=== PATIENT | female | born 1995 | race Caucasian/White ===

== ENCOUNTER → 2017-10-26 | Outpatient (REF) | payer BC ==
[~2017-10-26] MED LIST: AMOX-559 PO; AZIT-18 PO; BIOT800T4 PO; DESO1TAB40 PO; FAMO20TA28 PO; HYDR-4309 PO; HYDR1TAB PO; IRON18TA2 PO; ONDA4TAB PO; ONDA4TAB9 PO; ORAL BIRTH CONTROL; PRED20TA6 PO; PREN-127 PO; PROM-110 PO
[2017-10-26 15:07] LABS: PLATELET COUNT, AUTOMATED 198 K/uL (150-450)
== END ==
PROVIDERS: ATTEND Nurse Practitioner Family
DX: R11.10 Vomiting, unspecified (principal)
CPT/HCPCS: 82040; 82247; 82310; 82374; 82435; 82565; 82947; 84075; 84132; 84155; 84295; 84450; 84460; 84520; 85025

== ENCOUNTER 2017-11-20 04:29 | Emergency (ER) | payer BC ==
[2017-11-20] MEDS ORDERED: birth control (04:37)
--- NOTE | 2017-11-20 04:42 | ER Report ---
History and Physical Time Seen By MD: 04:41 Hx. of Stated Complaint: Pt reporting cold like symptoms for four days. Pt states throat, lymph nodes and tonsils are swollen. Pt states she feels like it is difficult to breathe. HPI/ROS CHIEF COMPLAINT: Sore throat HISTORY OF PRESENT ILLNESS: This is a 22 year old female. She has been having sore throat and upper respiratory symptoms for about 4 days now. Throat is the worst symptom. She has some loss of voice this morning as well. Runny nose. Mild cough. Nausea and some upset stomach. No diarrhea. No urinary problems. Allergies: Coded Allergies: Sulfa (Sulfonamide Antibiotics) (Verified Allergy, Intermediate, HIVES, ) amoxicillin (Verified Allergy, Intermediate, HIVES, 10/23/15) clavulanic acid (Verified Allergy, Intermediate, HIVES, 10/23/15) Home Meds Active Scripts Azithromycin (ZITHROMAX) 250 Mg Tablet, 1 TAB PO QDAY for 4 Days, #4 TAB 0 Refills Prov:FELICIANO ALMAZAN MD 11/20/17 Reported Medications [ control] No Conflict Check 11/20/17 Discontinued Reported Medications Desog-Et Estra/Ethin Estra (AZURETTE 28 DAY TABLET) 1 Each Tablet, 1 EACH PO DAILY 07/11/14 Discontinued Scripts Hydrocodone Bit/Acetaminophen (NORCO 5-325 TABLET) 1 Each Tablet, 1 EACH PO Q4H Y for PAIN, #12 Prov:ALFONSO HERNANDEZ DO 10/14/15 Promethazine Hcl (PROMETHAZINE HCL) 25 Mg Tablet, 25 MG PO Q4H Y for NAUSEA/ VOMITING, #15 TAB Prov:ALFONSO HERNANDEZ DO 10/14/15 Amoxicillin/Pot Clav 875-125 Mg Tab (AUGMENTIN 875-125 TABLET) 1 Each Tablet, 1 TAB PO Q12H for infection, #20 TAB TAKE ONE TABLET BY MOUTH EVERY 12 HOURS Prov:ALFONSO HERNANDEZ DO 10/14/15 Hydrocodone Bit/Acetaminophen (NORCO 5-325 TABLET) 1 Each Tablet, 1 EACH PO Q4H Y for PAIN, #12 Prov:ALFONSO HERNANDEZ DO 10/12/15 Azithromycin 250 Mg Tab (AZITHROMYCIN 250 MG TAB) 250 Mg Tablet, 0 PO QDAY, #6 TAB TAKE 2 TABLETS ON DAY 1 AND 1 TABLET ON DAYS 2-5 Prov:ALFONSO HERNANDEZ 10/12/15 Reviewed Nurses Notes: Yes Hx Smoking: No Smoking Status: Never Smoker Exposure to Second Hand Smoke?: No Hx Substance Use Disorder: No Hx Alcohol Use: No Constitutional Vital Sign - Last 24 Hours 11/20/17 11/20/17 11/20/17 11/20/17 04:35 04:37 04:39 05:50 Temp 98.1 Pulse 102 99 89 Resp 20 B/P (MAP) 106/80 (89) 106/80 105/66 (79) Pulse Ox 99 98 97 O2 Delivery Room Air Physical Exam General Appearance: Alert, no distress ENT: Normal oral mucosa. Moist mucous membranes. Posterior oropharynx red, erythematous, hypertrophy and exudates. Tympanic membranes are normal. Neck: Neck is supple and she has tender submandibular lymphadenopathy. Respiratory: Chest is non tender, lungs are clear to auscultation. Cardiac: regular rate and rhythm Gastrointestinal: Abdomen is soft and non tender, no masses, bowel sounds normal. Skin: No rashes or lesions. DIFFERENTIAL DIAGNOSIS: After history and physical exam differential diagnosis was considered for sore throat and upper respiratory symptoms. We'll check strep and influenza. If these are negative for check mono. Medical Decision Making Data Points Laboratory Hematology Test 11/20/17 04:55 Influenza Virus Type A (PCR) Negative (NEGATIVE) Influenza Virus Type B (PCR) Negative (NEGATIVE) Group A Streptococcus Screen Positive (NEGATIVE) Chemistry Test 11/20/17 04:55 Influenza Virus Type A (PCR) Negative (NEGATIVE) Influenza Virus Type B (PCR) Negative (NEGATIVE) Group A Streptococcus Screen Positive (NEGATIVE) ED Course/Re-evaluation ED Course Positive strep. Negative influenza. Penicillin allergy, we'll give a azithromycin. Off work for the next few days. Rest and increase fluid intake. Decision to Disposition Date: Nov 20, 2017 Decision to Disposition Time: 05:35 Depart Departure Latest Vital Signs Vital Signs Date Time Temp Pulse Resp B/P (MAP) Pulse Ox O2 Delivery O2 Flow Rate FiO2 11/20/17 05:50 89 105/66 (79) 97 11/20/17 04:37 98.1 20 Room Air Impression: Primary Impression: Strep pharyngitis Condition: Improved Disposition: HOME OR SELF-CARE Referrals: MAURICIO CARVAJAL DO (PCP) New Scripts Azithromycin (ZITHROMAX) 250 Mg Tablet 1 TAB PO QDAY for 4 Days, #4 TAB 0 Refills Prov: FELICIANO ALMAZAN MD 11/20/17 Patient Instructions: Strep Throat (ED) Additional Instructions: Take Ibuprofen or Tylenol as needed for pain. Take the antibiotic Azithromycin 250mg tablet once a day for 4 days starting tomorrow morning. FELICIANO ALMAZAN MD Nov 20, 2017 04:42
[2017-11-20] MEDS ORDERED: AZITHROMYCIN 250 MG TAB PO ONE (05:35)
[2017-11-20] MEDS ORDERED: AZIT-1 PO (05:36)
[2017-11-20 05:50] VITALS: BP 105/66
== END 2017-11-20 05:57 | disposition home or self-care (01) ==
LOC: ER 05:01
DX: J02.0 Streptococcal pharyngitis (principal)
CPT/HCPCS: 87081; 87502; 87880; 99283

== ENCOUNTER 2018-03-26 04:02 | Emergency (ER) | payer BC ==
[~2018-03-26 04:02] MED LIST changes: +AZIT-1 PO; +birth control
[2018-03-26] MEDS ORDERED: ONDANSETRON 4 MG ODT TABDP SL ONE (04:10)
--- NOTE | 2018-03-26 04:23 | ER Report ---
History and Physical Time Seen By MD: 04:02 Hx. of Stated Complaint: VENKATA STATES SHE HIT HER HEAD ON CABINET AROUND 1800, SHE STARTED VOMITING AND HAVING BLURRY VISION FOR THE LAST 3 HOURS. HPI/ROS CHIEF COMPLAINT: hit my head HISTORY OF PRESENT ILLNESS: Pt was putting her groceries away this evening, 630pm, and hit her head on the cabinet. Pt denies loc. Pt has had headche, nausea, vomited and blurred vision since she hit her head. Pt has hx of concussion when she was 15 and is concerned she could have a concussion. Pt denies any neck pain. No weakness or numbness to extremities. REVIEW OF SYSTEMS: Constitutional: No fever, no chills. Eyes: + blurred vision ENT: No sore throat. Cardiovascular: No chest pain, no palpitations. Respiratory: No cough, no shortness of breath. Gastrointestinal: No abdominal pain, +nausea, + vomiting. Genitourinary: No hematuria. Musculoskeletal: No back pain. Skin: No rashes. Neurological: No headache. Allergies: Coded Allergies: Penicillins (Verified Allergy, Intermediate, HIVES, 03/26/18) Sulfa (Sulfonamide Antibiotics) (Verified Allergy, Intermediate, HIVES, ) amoxicillin (Verified Allergy, Intermediate, HIVES, 10/23/15) clavulanic acid (Verified Allergy, Intermediate, HIVES, 10/23/15) Home Meds Active Scripts Ondansetron (ZOFRAN ODT) 4 Mg Tab.rapdis, 4 MG PO Q6-8H Y for NAUSEA/VOMITING, # 10 TAB.AMBAR Prov:JAYNE FULLER DO 03/26/18 Reported Medications [ control] No Conflict Check 11/20/17 Discontinued Scripts Azithromycin (ZITHROMAX) 250 Mg Tablet, 1 TAB PO QDAY for 4 Days, #4 TAB 0 Refills Prov:FELICIANO ALMAZAN MD 11/20/17 Past Medical/Surgical History Pmhx; concussion Pshx: tonsillectomy Reviewed Nurses Notes: Yes Hx Smoking: No Smoking Status: Never Smoker Exposure to Second Hand Smoke?: No Hx Substance Use Disorder: No Hx Alcohol Use: No Constitutional Vital Sign - Last 24 Hours 03/26/18 03/26/18 03/26/18 03/26/18 04:06 04:17 04:30 04:32 Temp 97.6 Pulse 98 82 77 Resp 16 B/P (MAP) 125/75 108/78 (88) Pulse Ox 95 96 95 O2 Delivery Room Air Physical Exam General Appearance: The patient is alert, has no immediate need for airway protection and no signs of toxicity. Eyes: Pupils equal and round no pallor or injection, EOMI, nl fundi ENT: no pharyngeal erythema or exudates, Mucous membranes are moist, TM are nl b/l, neg hemotympanums Respiratory: There are no retractions, lungs are clear to auscultation. Cardiovascular: Regular rate and rhythm. pulses are equal and symmetrical Gastrointestinal: Abdomen is soft and non tender, no masses, bowel sounds normal, no guarding, no rigidity or rebound Neurological: Cranial nerves II-XII grossly intact, no sensory or motor loss Skin: Warm and dry, no rashes. Musculoskeletal: Neck is supple non tender, no vertebral tenderness Extremities are nontender, non swollen and have full range of motion. DIFFERENTIAL DIAGNOSIS: After history and physical exam differential diagnosis was considered for concussion, intracranial bleed Medical Decision Making ED Course/Re-evaluation ED Course Will image. PT is tolerating fluids. no vomiting in ed. Ct stable. PT feels comfortable going home. Decision to Disposition Date: Mar 26, 2018 Decision to Disposition Time: 04:51 Depart Departure Latest Vital Signs Vital Signs Date Time Temp Pulse Resp B/P (MAP) Pulse Ox O2 Delivery O2 Flow Rate FiO2 03/26/18 04:32 77 95 03/26/18 04:30 108/78 (88) 03/26/18 04:06 97.6 16 Room Air Impression: Primary Impression: Concussion Condition: Condition Unchanged Disposition: HOME OR SELF-CARE Referrals: MAURICIO CARVAJAL DO (PCP) 2 Days New Scripts Ondansetron (ZOFRAN ODT) 4 Mg Tab.rapdis 4 MG PO Q6-8H Y for NAUSEA/VOMITING, #10 TAB.AMBAR Prov: JAYNE FULLER DO 03/26/18 Departure Forms: ER Transition Record, Medications Reconciliation, Off Work/ School Form, School or Work Release?: Work Number of days to be released: 1 Patient Portal Information Patient Instructions: Concussion (ED) Additional Instructions: Your cat scan was stable. Motrin/tylenol as needed for pain. zofran one every 6 hours as needed for nausea. Follow up with your family doctor. Return as needed. Problem Qualifiers Primary Impression: Concussion Encounter type: initial encounter Loss of consciousness presence/duration: without LOC Qualified Codes: S06.0X0A - Concussion without loss of consciousness, initial encounter JAYNE FULLER DO Mar 26, 2018 04:23
--- NOTE | 2018-03-26 04:45 | RADIOLOGY IMAGING REPORT ---
FACILITY[place] [facility] [place]IENT NAME: Enriqueta Ayoub : 1995 MR: [id number] V: [id number] EXAM DATE: ORDERING PHYSICIAN: JAYNE FULLER TECHNOLOGIST: Location: [facility] - [place] Patient: Enriqueta Ayoub : 1995 Visit/Account:[id number] Date of Sevice: 03/26/2018 HEAD W/O CONTRAST HISTORY: Hit left side of head. Nausea, vomiting, and blurred vision. COMPARISON: 02/25/2011. TECHNIQUE: Axial images were obtained from the skull base to the vertex without contrast. Sagittal an d coronal reformats were performed. One of the following dose optimization techniques was utilized in the performance of this exam: Autom ated exposure control; adjustment of the mA and/or kV according to the patient's size; or use of an i terative reconstruction technique. Specific details can be referenced in the facility's radiology CT exam operational policy. CONTRAST: None. FINDINGS: Brain: No intracranial hemorrhage, mass or edema. Ventricles and sulci: Sulci are normal. Ventricular size and configuration is normal. Osseous structures: Intact. Paranasal sinuses and mastoids: Normal. Orbits and soft tissues: There is mild cerumen within the left greater than right external auditory c anals. IMPRESSION: 1. No acute intracranial abnormality. Report Dictated By: Lizet Marsh at 03/26/2018 4:36 AM Report E-Signed By: Lizet Marsh at 03/26/2018 4:41 AM WSN:[id number]
[2018-03-26] MEDS ORDERED: ONDA4TAB PO (04:54)
[2018-03-26 05:00] VITALS: BP 106/72
== END 2018-03-26 05:03 | disposition home or self-care (01) ==
LOC: ER 04:28
DX: S06.0X0A Concussion without loss of consciousness, initial encounter (principal)
CPT/HCPCS: 70450; 99284; S0119

== ENCOUNTER → 2019-01-27 | Outpatient (REF) | payer BC ==
[~2019-01-27] MED LIST changes: -HYDR-4309 PO; +HYDR-653 PO
[2019-01-27 17:43] LABS: PLATELET COUNT, AUTOMATED 206 K/uL (150-450)
== END ==
PROVIDERS: ATTEND Nurse Practitioner Family
DX: R07.9 Chest pain, unspecified (principal)
CPT/HCPCS: 82040; 82247; 82310; 82374; 82435; 82565; 82947; 84075; 84132; 84155; 84295; 84450; 84460; 84484; 84520; 85025; 85379